=== PATIENT | male | born 1970 | race Hispanic/Latino ===

== ENCOUNTER 2019-06-05 22:36 | Emergency (ER) | payer OTHER ==
[~2019-06-05] VITALS: Ht 177.8 cm; Wt 88.6 kg
[2019-06-05] MEDS ORDERED: EPCL1TAB PO (22:45)
[2019-06-05] MEDS ORDERED: MORPHINE 10 MG/ML 1ML VIAL (J2270) IM ONE (23:00)
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
[2019-06-06] MEDS ORDERED: MORPHINE 4 MG/ML 1ML VIAL/SYRINGE (J2270) IV ONE (00:45)
[2019-06-06] MEDS ORDERED: AMPICILLIN SOD/SULBACTAM SOD 3 GM in D5W MINI-BAG PLUS 100 ML IV ONE (00:45)
[2019-06-06] MEDS ORDERED: AUGM500T34 PO (03:52)
[2019-06-06] MEDS ORDERED: MORPHINE 10 MG/ML 1ML VIAL (J2270) IV ONE (04:00)
[2019-06-06] MEDS ORDERED: NORCO 5/325MG TABLET (BULK FOR ED) PO ONE (04:00)
[2019-06-06] MEDS ORDERED: ACET500T15 PO (04:17)
[2019-06-06 05:03] VITALS: BP 118/72
== END 2019-06-06 05:18 | disposition home or self-care (01) ==
LOC: M ED 22:36
DX: S02.31XA Fracture of orbital floor, right side, initial encounter for closed fracture (principal); S02.101A Fracture of base of skull, right side, initial encounter for closed fracture; S02.602A Fracture of unspecified part of body of left mandible, initial encounter for closed fracture; S02.611A Fracture of condylar process of right mandible, initial encounter for closed fracture; S02.642A Fracture of ramus of left mandible, initial encounter for closed fracture; Y04.2XXA Assault by strike against or bumped into by another person, initial encounter; Y92.149 Unspecified place in prison as the place of occurrence of the external cause; Y93.9 Activity, unspecified; B18.2 Chronic viral hepatitis C
CPT/HCPCS: 70486; 96365; 96372; 96375; 96376; 99284; J2270